=== PATIENT | male | born 1990 | race Caucasian/White ===

== ENCOUNTER 2024-05-18 12:38 | Emergency (ER) | payer BC ==
[~2024-05-18] VITALS: Ht 185.4 cm; Wt 87.1 kg
[2024-05-18 12:50] VITALS: BP_SYST 162; PULSE 105; RESP 18; TEMP 97.7; O2SAT 98
[2024-05-18 13:46] LABS: BASOPHILS % (AUTO) 0.2 % (0.0-2.0); EOSINOPHILS % (AUTO) 0.3 % (0.0-4.0); HEMATOCRIT 48.7 % (36-54); HEMOGLOBIN 16.3 g/dL (14.0-18.0); LYMPHOCYTES # (AUTO) 1.6 K/uL (1.0-5.5); LYMPHOCYTES % (AUTO) 23.1 % (20.5-51.5); MEAN CORPUSCULAR HEMOGLOBIN 29 pg (27-31); MEAN CORPUSCULAR HGB CONC 34 % (32-36); MEAN CORPUSCULAR VOLUME 85 fL (79.0-98.0); MONOCYTES # (AUTO) 0.5 K/uL (0.0-1.0); MONOCYTES % (AUTO) 7.1 % (1.7-9.3); NEUTROPHILS # (AUTO) 4.8 K/uL (1.8-7.7); NEUTROPHILS % (AUTO) 69.3 % (40.0-70.0); PLATELET COUNT (AUTO) 163 K/uL (130-430); WHITE BLOOD COUNT (AUTO) 6.9 K/uL (4.8-10.8)
[2024-05-18 14:29] LABS: PROTHROMBIN TIME 10.8 SECS (9.5-12.5)
[2024-05-18 14:34] LABS: ALBUMIN 4.2 g/dL (3.4-4.8); BILIRUBIN,DIRECT 0.1 mg/dL (0.0-0.3); CALCIUM 9.4 mg/dL (8.4-11.0); CREATININE 1.16 mg/dL (0.55-1.30); POTASSIUM 4.2 mmol/L (3.5-5.1); TOTAL BILIRUBIN 0.6 mg/dL (0.0-1.0); TOTAL PROTEIN, SERUM 7.1 g/dL (6.4-8.3)
[2024-05-18 15:13] VITALS: BP_SYST 116; PULSE 98; RESP 18; TEMP 98.2; O2SAT 99
[2024-05-18 15:15] LABS: BILIRUBIN,URINE NEGATIVE (NEGATIVE); BLOOD, URINE NEGATIVE (NEGATIVE); CLARITY/URINE CLEAR (CLEAR); COLOR,URINE YELLOW (YELLOW); GLUCOSE,URINE NEGATIVE (NEGATIVE); KETONES,URINE NEGATIVE (NEGATIVE); LEUKOCYTE ESTERASE ,URINE NEGATIVE (NEGATIVE); NITRITE, URINE NEGATIVE (NEGATIVE); PH,URINE 6.5 (5.0-8.0); PROTEIN URINE NEGATIVE (NEGATIVE); UROBILINOGEN,URINE 0.2 (0.2-1.0)
[2024-05-18] MEDS ORDERED: IBUP-1971 PO (15:15)
[2024-05-18] MEDS ORDERED: TRAM50TA2 PO (15:15)
== END 2024-05-18 15:18 | disposition home or self-care (01) ==
LOC: SED 12:38
DX: K76.89 Other specified diseases of liver (principal); R10.11 Right upper quadrant pain; R11.0 Nausea
CPT/HCPCS: 36415; 80048; 80076; 81001; 81003; 82150; 83605; 83690; 85025; 85610; 85730; 99284